=== PATIENT | male | born 1980 | race Asian ===

== ENCOUNTER 2020-05-30 08:30 | Inpatient (IN) | payer OTHER ==
[~2020-05-30] VITALS: Ht 175.3 cm; Wt 61.2 kg
[2020-06-07] MEDS ORDERED: FINASTERIDE1 MG PO (14:02)
[2020-06-08] VITALS (19 sets, daily range): BP systolic 92–164; BP diastolic 52–92
[2020-06-08] MEDS ORDERED: ceFAZolin sod 2 GM in NS 55 ML IVPB ONE (07:00)
--- NOTE | 2020-06-08 07:32 | Pre-Procedure Note/Attestation ---
Pre-Procedure Note/Attestation Complete Prior to Procedure Planned Procedure: bilateral Procedure Narrative: Bilateral hemilaminotomy foraminotomy and right sided microdiscectomy of lumbar 45 and 5-S1 Indications for Procedure Pre-Operative Diagnosis: L45 and L5S1 herniation Attestation I attest that I discussed the nature of the procedure; its benefits; risks and complications; and alternatives (and the risks and benefits of such alternatives ), prior to the procedure, with the patient (or the patient's legal medical collections representative). I attest that, if there was a reasonable possibility of needing a blood transfusion, the patient (or the patient's legal medical collections representative) was given the [place] [employer] [facility] standardized written summary, pursuant to the [place] Blood Safety Act ([place] Health and Safety Code # 1645, as amended). I attest that I re-evaluated the patient just prior to the surgery and that there has been no change in the patient's H&P, except as documented below: Ricci Wen MD Jun 08, 2020 07:32
--- NOTE | 2020-06-08 07:33 | Brief Operative Note ---
Immediate Post Operative Note Operative Note Chief Complaint: back pain and radiculopathy Pre-op Diagnosis: L45 and L5S1 herniation Procedure: Bilateral hemilaminotomy foraminotomy and right sided microdiscectomy of lumbar 45 and 5-S1 Post-op Diagnosis: same as pre-op Findings: consistent w/pre-op dx studies Surgeon: Bettye Garbage Pick Up Worker: Elsie Anesthesiologist: Shimon Anesthesia: general Specimen: none Complications: none Condition: stable Fluids: IVF Estimated Blood Loss: minimal Drains: none Implant(s) used?: No Ricci Wen MD Jun 08, 2020 07:33
[2020-06-08] MEDS ORDERED: HYDROcodone/Acetamin 7.5/325 tab ORAL PRN ×2 (07:45→09:15)
[2020-06-08] MEDS ORDERED: HYDROcodone/Acetamin 5/325 tab ORAL PRN ×2 (07:45→09:15)
[2020-06-08] MEDS ORDERED: Morphine Sulfate 2mg/ml Inj(IV/IM USE ONLY) IV PRN (07:45)
[2020-06-08] MEDS ORDERED: Morphine Sulfate 4mg/ml Inj (IV USE ONLY) IV PRN ×2 (07:45)
[2020-06-08] MEDS ORDERED: Chloraseptic Spray 20mL Bottle ORAL PRN (07:45)
[2020-06-08] MEDS ORDERED: Naloxone 0.4mg/ml Inj IVP PRN (07:45)
[2020-06-08] MEDS ORDERED: Milk of Magnesia 30ml Ud ORAL PRN (07:45)
[2020-06-08] MEDS ORDERED: Neostigmine 1mg/ml 10ml Inj ONE (09:00)
[2020-06-08] MEDS ORDERED: Sterile Water Irrig 1000ml IRRIG ONE (09:00)
[2020-06-08] MEDS ORDERED: LR 1000ml ONE (09:00)
[2020-06-08] MEDS ORDERED: propofoL 1,000mg/100ml IV ONE (09:00)
[2020-06-08] MEDS ORDERED: LR 1000ml 1,000 ML IVLG SCH (09:02)
--- NOTE | 2020-06-08 09:07 | Anethesia Preoperative Eval ---
Anesthesia Pre-op PMH/ROS General Date of Evaluation: Jun 08, 2020 Time of Evaluation: 09:29 Anesthesiologist: Mitch ASA Score: ASA 2 Mallampati Score Class I : Soft palate, uvula, fauces, pillars visible Class II: Soft palate, uvula, fauces visible Class III: Soft palate, base of uvula visible Class IV: Only hard plate visible Mallampati Classification: Class II Surgeon: Bettye Diagnosis: Back Pain Surgical Procedure: B Hemilaminotomy, Foraminotomy, L4-5, L5-S1, R Microdiscectomy L4-5, L5-S1 Anesthesia History: none Family History: no anesthesia problems Allergies: Coded Allergies: No Known Allergies (Unverified , 06/07/20) Medications: see eMAR Patient NPO?: Yes Past Medical History Pulmonary: Reports: asthma Hematology/Immune: Reports: anemia Anesthesia Pre-op Phys. Exam Physician Exam Last Vital Signs Date Time Temp Pulse Resp B/P (MAP) Pulse Ox O2 Delivery O2 Flow Rate FiO2 06/08/20 08:33 Room Air 06/08/20 08:31 97.7 69 18 121/72 (88) 100 Constitutional: NAD Neurologic: CN 2-12 intact Cardiovascular: RRR Respiratory: CTA Gastrointestinal: S/NT/ND Airway Exam Mallampati Score: Class II MO: full ROM: full Teeth: missing, intact Anesthesia Pre-op A/P Risk Assessment & Plan Assessment: ASA 2 Plan: GA, SED, GlideScope Status Change Before Surgery: No Pre-Antibiotics Dru Grams Ancef IV Given Within 1 Hr of Incision: Yes Time Given: 09:51 Carlo Meyer MD Jun 08, 2020 09:07
[2020-06-08] MEDS ORDERED: Meperidine 25mg/0.5ml Inj (FOR RIGORS ONLY) IV PRN (09:15)
[2020-06-08] MEDS ORDERED: Atropine Sulfate 0.4mg/ml inj IVP PRN (09:15)
[2020-06-08] MEDS ORDERED: LORazepam Inj 2mg/ml 1ml IV PRN (09:15)
[2020-06-08] MEDS ORDERED: Hydromorphone 0.5mg/0.5ml inj IVP PRN (09:15)
[2020-06-08] MEDS ORDERED: Acetaminophen (Non formulary) 100 ML IV ONE (09:15)
[2020-06-08] MEDS ORDERED: Labetalol 5mg/ml 20ml vial IV PRN (09:15)
[2020-06-08] MEDS ORDERED: Ketorolac 30mg Inj IV PRN ×2 (09:15)
[2020-06-08] MEDS ORDERED: DiphenhydrAMINE 50mg/ml Inj IVP PRN (09:15)
[2020-06-08] MEDS ORDERED: oxyCODONE HCL/Acetaminophen 5/325mg ORAL PRN (09:15)
[2020-06-08] MEDS ORDERED: fentaNYL 100 mcg/2 mL IV PRN (09:15)
[2020-06-08] MEDS ORDERED: Midazolam 2mg/2ml Inj IVP PRN (09:15)
[2020-06-08] MEDS ORDERED: Metoclopramide 10mg/2ml Inj IVP PRN (09:15)
[2020-06-08] MEDS ORDERED: Gelfoam Size TOPIC ONE (09:17)
[2020-06-08] MEDS ORDERED: Thrombin 5000 units TOPIC ONE ×4 (09:17→11:42)
[2020-06-08] MEDS ORDERED: Bacitracin 50000 Units Vial ONE (09:18)
[2020-06-08] MEDS ORDERED: Ropivacaine 5mg/ml Vial 20ml INJ ONE ×3 (09:18→14:30)
--- NOTE | 2020-06-08 09:33 | Immediate Post-Op Evaluation ---
Immediate Post-Op Evalulation Immediate Post-Op Evalulation Procedure: B Hemilaminotomy, Foraminotomy, L4-5, L5-S1, R Microdiscectomy L4-5 , L5-S1 Date of Evaluation: Jun 08, 2020 Time of Evaluation: 15:05 IV Fluids: 1700 LR Blood Products: 0 Estimated Blood Loss: 100 Urinary Output: 1100 Blood Pressure Systolic: 144 Blood Pressure Diastolic: 88 Pulse Rate: 134 Respiratory Rate: 16 O2 Sat by Pulse Oximetry: 100 Temperature (Fahrenheit): 99.3 Pain Score (1-10): 2 Nausea: No Vomiting: No Complications 0 Patient Status: awake, reacts, patent, extubated, none Hydration Status: adequate Dru Grams Ancef IV Given Within 1 Hr of Incision: Yes Time Given: 09:51 Carlo Meyer MD Jun 08, 2020 09:33
--- NOTE | 2020-06-08 09:34 | 48 Hour Post Anesthesia Eval ---
Post Anesthesia Evaluation Procedure: B Hemilaminotomy, Foraminotomy, L4-5, L5-S1, R Microdiscectomy L4-5 , L5-S1 Date of Evaluation: Jun 08, 2020 Time of Evaluation: 17:23 Blood Pressure Systolic: 132 0: 74 Pulse Rate: 71 Respiratory Rate: 18 Temperature (Fahrenheit): 98.6 O2 Sat by Pulse Oximetry: 100 Airway: patent Nausea: No Vomiting: No Pain Intensity: 2 Hydration Status: adequate Cardiopulmonary Status: Stable Mental Status/LOC: patient returned to baseline Follow-up Care/Observations: 0 Post-Anesthesia Complications: 0 Carlo Meyer MD Jun 08, 2020 09:34
[2020-06-08] MEDS ORDERED: Vancomycin 1gm vial IVPB ONE (09:37)
[2020-06-08] MEDS ORDERED: Lidocaine 1% MPF 10mg/ml 5ml ONE ×2 (09:42→11:59)
[2020-06-08] MEDS ORDERED: Sodium Chloride 10ml vial INJ ONE (09:42)
[2020-06-08] MEDS ORDERED: Lidocaine 1% Plain 30 ml INJ ONE (09:44)
[2020-06-08] MEDS ORDERED: fentaNYL 100 mcg/2 mL IV ONE (09:49)
[2020-06-08] MEDS ORDERED: NS Irrig 1000ml IRRIG ONE ×2 (10:20→10:40)
[2020-06-08] MEDS ORDERED: Glycopyrrolate 0.2mg/ml 1ml Vial ONE (11:29)
--- NOTE | 2020-06-08 12:07 | Diagnostic Imaging Report ---
INDICATION: Pain, intraoperative TECHNIQUE: Intraoperative imaging Fluoroscopy time: 2.9 seconds Total dose: 0.80415 mGym2 Total number of images: One COMPARISON: None FINDINGS: Intraoperative images document surgical tools projected posterior to the superior L5 endplate and L5-S1 disc. IMPRESSION: Intraoperative imaging, as described
[2020-06-08] MEDS ORDERED: Isovue-300 100ml vial INJ PRN (16:00)
--- NOTE | 2020-06-08 16:09 | General Surgery Progress Note ---
General Surgery-Progress Note Subjective Day of Surgery: 06/08/2020 Reason for Consult Postoperative State Procedure Performed Bilateral hemilaminotomy foraminotomy and right sided microdiscectomy of lumbar 45 and 5-S1 Chief Complaint: Non responsive to commands. Additional Comments Patient is not responding to all commands as he is awakening from anesthesia, yet moves all extremities Objective Last 24 Hour Vital Signs Date Time Temp Pulse Resp B/P (MAP) Pulse Ox O2 Delivery O2 Flow Rate FiO2 06/08/20 14:55 71 18 100 06/08/20 14:54 134 16 100 06/08/20 14:50 99.3 128 28 164/84 100 Simple Mask 6 06/08/20 08:33 Room Air 06/08/20 08:31 97.7 69 18 121/72 (88) 100 Dressing: dry Wound: dry Drains: none Cardiovascular: RSR Respiratory: clear Abdomen: soft, non-tender Extremities: no edema Laboratory Tests Test 06/08/20 15:50 POC Whole Blood Glucose 183 MG/DL (74-106) H Imaging MRI Brain, Ct Head Assessment Post-op Diagnosis Status post hemilaminotomy microdiscectomy L45 L5S1 Plan Additional Comments Workup in the PACU for his current state I was notified at 3:27PM that Mr Silvestre was having difficulty waking from the surgical anesthesia I was in the hospital and was at his bedside within moments I immediately called for Dr. Meyer and Dr Gill to help evaluate our shared patient I ordered a Ct Head STAT , MRI Brain, Neurology consult with Dr Antony North CBC , Chem12 Transfer to ICU for monitoring in the interim Ricci Wen MD Jun 08, 2020 16:09
[2020-06-08] MEDS ORDERED: Gadavist 7.5mMol/7.5ml vial IV PRN (16:15)
[2020-06-08 16:19] LABS: HEMATOCRIT 30.8 % (42.0-52.0); HEMOGLOBIN 9.4 G/DL (14.2-18.0); MEAN CORPUSCULAR VOLUME 62 FL (80-99); PLATELET COUNT 155 K/UL (150-450); RED BLOOD COUNT 4.94 M/UL (4.70-6.10); RED CELL DISTRIBUTION WIDTH 14.2 % (11.6-14.8); WHITE BLOOD COUNT 11.7 K/UL (4.8-10.8)
[2020-06-08 16:33] LABS: ANION GAP 9 mmol/L (5-15); BLOOD UREA NITROGEN 14 mg/dL (7-18); CALCIUM 8.4 MG/DL (8.5-10.1); CARBON DIOXIDE 25 MMOL/L (21-32); CHLORIDE 107 MMOL/L (98-107); CREATININE 1.3 MG/DL (0.55-1.30); SODIUM 141 MMOL/L (136-145)
--- NOTE | 2020-06-08 16:33 | General Surgery Progress Note ---
General Surgery-Progress Note Subjective Day of Surgery: 06/08/20 Reason for Consult Patient awoke from surgery 430pm , he is responsive to person place and time, able to answer all questions normally Procedure Performed Bilateral hemilaminotomy foraminotomy and right sided microdiscectomy of lumbar 45 and 5-S1 Chief Complaint: Patient was nonresponsive postoperative until he awoke from anesthesia 430- Symptoms: improved Additional Comments I was at the bedside about to place a valle when he awoke from surgery Objective Last 24 Hour Vital Signs Date Time Temp Pulse Resp B/P (MAP) Pulse Ox O2 Delivery O2 Flow Rate FiO2 06/08/20 14:55 71 18 100 06/08/20 14:54 134 16 100 06/08/20 14:50 99.3 128 28 164/84 100 Simple Mask 6 06/08/20 08:33 Room Air 06/08/20 08:31 97.7 69 18 121/72 (88) 100 Dressing: dry Wound: clean, intact Drains: none Cardiovascular: RSR Respiratory: clear Abdomen: soft Extremities: no edema Laboratory Tests Test 06/08/20 15:50 06/08/20 16:05 POC Whole Blood Glucose 183 MG/DL (74-106) H White Blood Count 11.7 K/UL (4.8-10.8) H Red Blood Count 4.94 M/UL (4.70-6.10) Hemoglobin 9.4 G/DL (14.2-18.0) L Hematocrit 30.8 % (42.0-52.0) L Mean Corpuscular Volume 62 FL (80-99) L Mean Corpuscular Hemoglobin 19.1 PG (27.0-31.0) L Mean Corpuscular Hemoglobin Concent 30.6 G/DL (32.0-36.0) L Red Cell Distribution Width 14.2 % (11.6-14.8) Platelet Count 155 K/UL (150-450) Mean Platelet Volume 9.3 FL (6.5-10.1) Neutrophils (%) (Auto) % (45.0-75.0) Lymphocytes (%) (Auto) % (20.0-45.0) Monocytes (%) (Auto) % (1.0-10.0) Eosinophils (%) (Auto) % (0.0-3.0) Basophils (%) (Auto) % (0.0-2.0) Neutrophils % (Manual) Pending Lymphocytes % (Manual) Pending Platelet Estimate Pending Platelet Morphology Pending Sodium Level Pending Potassium Level Pending Chloride Level Pending Carbon Dioxide Level Pending Blood Urea Nitrogen Pending Creatinine Pending Estimat Glomerular Filtration Rate Pending Glucose Level Pending Calcium Level Pending Total Bilirubin Pending Aspartate Amino Transf (AST/SGOT) Pending Alanine Aminotransferase (ALT/SGPT) Pending Alkaline Phosphatase Pending Total Protein Pending Albumin Pending Globulin Pending Assessment Post-op Diagnosis Status post hemilaminotomy microdiscectomy L45 L5S1 Plan Additional Comments Patient awoke and is able to answer all questions to person place and time he was able to answer who the president was, the year , the month the city and his function here He is now completely responsive and as a result we can hold on cT MRI and neurology consultation We will follow him closely Ricci Wen MD Jun 08, 2020 16:33
[2020-06-08 16:43] LABS: ALANINE AMINOTRANSFERASE 17 U/L (12-78); ALBUMIN 3.8 G/DL (3.4-5.0); ALBUMIN/GLOBULIN RATIO 1.6 (1.0-2.7); ALKALINE PHOSPHATASE 46 U/L (46-116); ASPARTATE AMINO TRANSFERASE 13 U/L (15-37); BILIRUBIN,TOTAL 1.1 MG/DL (0.2-1.0)
[2020-06-08 16:45] LABS: BILIRUBIN,DIRECT 0.3 MG/DL (0.0-0.3)
--- NOTE | 2020-06-08 17:10 | NUR ---
NURSE NOTES: Patient arrived on unit via hospital bed. Stable. AOx2. Patient needed to be reminded of where he is and what day it is. Patient denies pain or SOB. Breathing is even and unlabored. VSS. Patient oriented to room, call light, and unit. Patient instructed to use call light for assistance, verbalized understanding. Patient is in bed in locked and lowest position with call light within reach. All safety measures provided. SCD on marshall legs. IV flushed and patent. Surgical dressing c/d/i. Ice pack in place. All needs met at this time. Will continue to monitor.
--- NOTE | 2020-06-08 17:27 | General Progress Note ---
Assessment/Plan Assessment/Plan: L45 and L5S1 herniation Bilateral hemilaminotomy foraminotomy and right sided microdiscectomy of lumbar 45 and 5-S1 paradoxical anesthesia reaction with toxic met encephalopathy, resolved PLAN 1. incentive spirometry 2. SCD 3. PT evaluation and therapy 4. Hydration 5. Pain management 6. Monitor LOC 7. discharge once stable with outpatient follow up d/w Dr. Wen Subjective Allergies: Coded Allergies: No Known Allergies (Unverified , 06/07/20) Subjective asked to see in recovery was altered vitals initially tachy improved when seen poor response to pain on follow up - now back to normal baseline Objective Last 24 Hour Vital Signs Date Time Temp Pulse Resp B/P (MAP) Pulse Ox O2 Delivery O2 Flow Rate FiO2 06/08/20 14:55 71 18 100 06/08/20 14:54 134 16 100 06/08/20 14:50 99.3 128 28 164/84 100 Simple Mask 6 06/08/20 08:33 Room Air 06/08/20 08:31 97.7 69 18 121/72 (88) 100 Laboratory Tests 06/08/20 15:50: POC Whole Blood Glucose 183H 06/08/20 16:05: White Blood Count 11.7H, Red Blood Count 4.94, Hemoglobin 9.4L, Hematocrit 30.8L , Mean Corpuscular Volume 62L, Mean Corpuscular Hemoglobin 19.1L, Mean Corpuscular Hemoglobin Concent 30.6L, Red Cell Distribution Width 14.2, Platelet Count 155, Mean Platelet Volume 9.3, Neutrophils (%) (Auto) , Lymphocytes (%) (Auto) , Monocytes (%) (Auto) , Eosinophils (%) (Auto) , Basophils (%) (Auto) , Differential Total Cells Counted 100, Neutrophils % ( Manual) 88H, Lymphocytes % (Manual) 3L, Monocytes % (Manual) 8, Eosinophils % ( Manual) 1, Basophils % (Manual) 0, Band Neutrophils 0, Platelet Estimate DecreasedL, Platelet Morphology Normal, Polychromasia 1+, Hypochromasia 1+, Anisocytosis 1+, Sodium Level 141, Potassium Level 4.0, Chloride Level 107, Carbon Dioxide Level 25, Anion Gap 9, Blood Urea Nitrogen 14, Creatinine 1.3, Estimat Glomerular Filtration Rate > 60, Glucose Level 182H, Calcium Level 8.4L , Total Bilirubin 1.1H, Direct Bilirubin 0.3, Aspartate Amino Transf (AST/SGOT) 13L, Alanine Aminotransferase (ALT/SGPT) 17, Alkaline Phosphatase 46, Total Protein 6.2L, Albumin 3.8, Globulin 2.4, Albumin/Globulin Ratio 1.6 Height (Feet): 5 Height (Inches): 9.00 Weight (Pounds): 135 Objective WDWN NAD clear breath sounds bilaterally without rhonchi or wheeze [id number] without MRG NABS nontender no HSM no CCE nonfocal Raoul Hall MD Jun 08, 2020 17:27
[2020-06-08] MEDS: Metoclopramide 10mg/2ml Inj IVP PRN (17:39)
--- NOTE | 2020-06-08 18:01 | NUR ---
INSURANCE NO B/AR INDICATION WHERE TO FAX CLINICALS
--- NOTE | 2020-06-08 18:03 | NUR ---
CASE MANAGEMENT: INITIAL REVIEW 39 YO M PRESENTED TO [facility] PMHx; ASTHMA SI;S/P Bilateral hemilaminotomy foraminotomy and right sided microdiscectomy of lumbar 45 and 5-S1 VS: T 97.7 HR 69 RR 18 B/P 121/72 SATS 100% ON RA LABS: WBC 11.7 GLU 182 CA 8.4 TBILI 1.1 AST 13 IS:OR MEDS' PATIENT ADMITTED TO MED/SURG 06/08/2020 @ 0733 DCP: HOME PLAN OF CARE: 1. incentive spirometry 2. SCD 3. PT evaluation and therapy 4. Hydration 5. Pain management 6. Monitor LOC 7. discharge once stable with outpatient follow up Operative Note Chief Complaint: back pain and radiculopathy Pre-op Diagnosis: L45 and L5S1 herniation Procedure: Bilateral hemilaminotomy foraminotomy and right sided microdiscectomy of lumbar 45 and 5-S1 Post-op Diagnosis: same as pre-op
[2020-06-08] MEDS: NS w/KCl 20mEq 1000ml 1,000 ML IV SCH (18:05)
[2020-06-08] MEDS: ceFAZolin sod 1 GM in D5W 55 ML IV SCH (18:05)
[2020-06-08] MEDS: Docusate 100mg cap ORAL SCH (18:05)
--- NOTE | 2020-06-08 19:40 | NUR ---
NURSE NOTES: received pt. from Shruthi DURHAM.
--- NOTE | 2020-06-08 19:45 | NUR ---
NURSE NOTES: Received awake flat in bed, alert and oriented, verbally responsive. No sob noted, breathing even and unlabored, with complaints of pain, 6/10, was just given pain meds. With bed in it's lowest position, alarmed and locked. With post op site dressing dry and intact. Will continue to monitor.
--- NOTE | 2020-06-08 20:01 | NUR ---
NURSE HAND-OFF: Important Events on Shift:[s/p surgery] Patient Status: stable Diet: regular Pending Orders: n/a Pending Results/Labs:n/a Pending MD notification:n/a Latest Vital Signs: Temperature 98.1 , Pulse 89 , B/P 118 /73 , Respiratory Rate 18 , O2 SAT 95 , Room Air, O2 Flow Rate . Vital Sign Comment: n/a Latest Hammond Fall Score: 35 Fall Risk: Medium Risk Safety Measures: Call light Within Reach, Side Rails Side Rails x1, Bed position Low and Locked. Fall Precautions: Patient Fall Education Report given to Al RN.
[2020-06-08] MEDS: HYDROmorphone 1mg/ml Carpuject IVP PRN (22:05)
[2020-06-09] VITALS (7 sets, daily range): BP systolic 96–127; BP diastolic 51–73
[2020-06-09] MEDS: Metoclopramide 10mg/2ml Inj IVP PRN ×2 (00:35→12:12)
[2020-06-09] MEDS: ceFAZolin sod 1 GM in D5W 55 ML IV SCH ×2 (02:26→09:00)
--- NOTE | 2020-06-09 02:44 | Operative Note - Dictated ---
DATE OF OPERATION: 06/08/2020 SURGEON: Ricci Wen MD MONKEY KEEPER: ESPERANZA Petty. ANESTHESIA: General endotracheal anesthesia. PREOPERATIVE DIAGNOSES: 1. Intractable back pain. 2. Intractable leg pain. 3. Worsening radiculopathy. 4. Weakness. 5. Herniated nucleus pulposus, L4-L5, L5-S1 herniation. 6. Neural foraminal stenosis, L4-L5, L5-S1. POSTOPERATIVE DIAGNOSES: 1. Intractable back pain. 2. Intractable leg pain. 3. Worsening radiculopathy. 4. Weakness. 5. Herniated nucleus pulposus, L4-L5, L5-S1 herniation. 6. Neural foraminal stenosis, L4-L5, L5-S1. PROCEDURES PERFORMED: 1. Right-sided L4-L5, L5-S1 microdiscectomy. 2. L4-L5, L5-S1 hemilaminotomy, foraminotomy and medial facetectomy. 3. L4-L5, L5-S1 neural foraminotomy through a transpedicular intraforaminal approach. 4. Use of intraoperative microscope. 5. Supervision and interpretation of intraoperative fluoroscopy. 6. Supervision and interpretation of somatosensory-evoked potential and free running EMG monitoring. 7. Bilateral hemilaminotomy, foraminotomy L5-S1 and L4-L5. 8. Duraplasty L4-L5. EBL: Less than 100 mL. COMPLICATIONS: None. INDICATIONS FOR THE PROCEDURE: The patient presents for intractable back pain and radiculopathy. The patient tried and failed a prolonged course of conservative management, including but not limited to chiropractic therapy, physical therapy, nonsteroidal anti-inflammatory drugs, medication, ice packs as well as epidural injection. Despite these therapies, the patient still developed recalcitrant pain and elected for definitive management in the form of right-sided L4-L5, L5-S1 microdiscectomy, L4-L5, L5-S1 hemilaminotomy, foraminotomy and medial facetectomy, L4-L5, L5-S1 neural foraminotomy through a transpedicular intraforaminal approach CONSENT: We had a long discussion with the patient regarding definitive surgical treatment options. The patient's MRI demonstrated herniated nucleus pulposus, L4-L5, L5-S1 herniation, neural foraminal stenosis, L4-L5, L5-S1 and as a result, I felt the patient would benefit from the discectomy as well as neural foraminotomy at this level. We had a long discussion with the patient regarding the risks, alternatives, and benefits of surgery. Our description of the risks included a discussion in person as well as a signed consent which detailed all pertinent risks and the procedure itself. Briefly, our discussion included but was not limited to infection, bleeding, pseudarthrosis, spinal cord injury, neurovascular injury, dural tear, CSF leak, neuropathy, paralysis, permanent weakness/drop foot, paresthesias blindness, palsy and weakness. The patient understood there may be a need for revision surgery or additional procedures. Approach related complications including dysphonia, dysphagia, blindness, permanent vocal cord and neural injury, hematoma, swallowing and breathing difficulty. Medical complications including liver, kidney, shock, and cardiopulmonary failure. Anesthesia complications including , swelling. Damage to the musculature, larynx (voice injury or loss),esophagus (throat), trachea, blood vessels and muscles (muscular sprain) and lungs (pneumothorax) during this surgical procedure. Injury to deeper structures may be temporary or permanent. The patient understood these and elected to proceed. A written and verbal consent was given. We discussed the pros and cons of all the alternatives. We discussed the uncertainties associated with the decision. Afterwards I assessed the patients understanding and explored their preferences. All questions were answered and no guarantees were given. Medical clearance was obtained prior to surgery INTRAOPERATIVE FINDINGS: L4-L5 level: There was a larger than anticipated disc herniation at L4-L5 on the right side encroaching the right neural foramina. This was larger than anticipated when viewed on the MRI. This disc was encroaching on neural foramina on the right side. A hemilaminotomy was performed and noticed a bulging at the neural element posteriorly. The neural element was carefully mobilized and noticed a protrusion posteriorly. The neural element was due to a lateralized disc herniation of herniated nucleus pulposus tissue. This was probed with a Microsect-1B curette and found to be the source of a tear in annular fibrosis along the right aspect of the TLL. This tear was approximately inline with the annular fiber vertically almost 10 degrees cephalad to caudad. Through this tissue encroaching on the neural foramina as described on the right side. This tissue was carefully dissected with a combination of a Drummond pituitary, arthroscopic pituitaries, and 1.5 and 2 mm narrow pituitaries until a complete microdiskectomy was performed. Afterwards, I noticed there was no longer any protrusion of posterior directed migration of the neural elements at this level. At L4-L5, I noticed a calcification on the posterior margin of the ligamentum flavum onto the dural tissue itself as a part of the microdiskectomy and the decompression, the ligamentum flavum was resected and upon removal of the bony island attached to the dural tissue, the decision was made to carefully peel off the dural tissue and for not leaving it in its place. As a result, this necessitated a duraplasty for a 1 to 2 mm defect. This was performed with a TF-4 Nurolon suture. This allowed for a wider watertight closure, which was afterwards supplemented with DuraGen and Tisseel. L5-S1: At L5-S1 after the bilateral hemilaminotomy and foraminotomies were performed, I noted a slight posterior migration on the neural element. Once these were carefully mobilized using a Beverly 4 and narrow nerve root retractor, I noticed the source to be a posterior disc herniation, which was visualized through a nearly vertical tear in the posterior longitudinal ligament, which was along the right neural foramina approximately one-third laterally. This nuclear tissue was carefully mobilized with a Microsect-1B and was carefully resected with a combination of arthroscopic pituitaries, narrow pituitaries 1.5 and 2 mm, and a Drummond micropituitary. There were no bony elements noted at L5-S1. I should note the disc at both L4-L5 and L5-S1 was soft and appeared to be in acute traumatic disc herniation. There was nothing degenerative noted about the disc. The disc was not crumbled or desiccated or collapse in disc height. DESCRIPTION OF PROCEDURE: Under the benefit of general endotracheal anesthesia and with the assistance of the entire operative team, the patient was moved from the rdarby onto the operative table in the prone position on a Brad frame. The head was secured and positioned appropriately. Bilateral arms were secured with Gel pads and foam and all bony prominences were padded. The bilateral lower extremity SCD and JOAQUIN hose were placed for DVT prophylaxis. A surgical timeout was called which corroborated our planned procedure. Preoperative Antibiotics were administered within 30 minutes of the incision for prophylaxis. Decadron was given for preoperative steroids. Using lateral radiography, the operative levels were delineated. An incision was marked based on our interpretation of lateral radiography and afterwards the body was prepped and draped in the usual sterile manner. The family was notified that we were ready to commence surgery and were called in the waiting room hourly for updates. An incision was based on our lateral fluoroscopic image to center the incision at the L5-S1 interspace. The wound was prepped and draped in the usual sterile fashion. Using a scalpel a midline incision was taken down through the skin and subcutaneous tissues until the overlying hemilamina of L4-L5, L5-S1 were visualized. Next, using meticulous hemostasis, hemilaminotomies were dissected and retractors were placed. Using a [employer] dental, we confirmed placement at the L4-L5, L5-S1 interspace. We next turned our attention to our decompression. A standard hemilaminotomy foraminotomy medial facetectomy was performed at each level in standard fashion using a Midas-Damion type AM8 drill bit, straight and angled curettage, and Kerrison 4 rongeurs until the lateral thecal sac margin and traversing nerve root was visualized. All remainders of the ligamentum flavum and lateral bony margins were resected in total with angled curettage and Kerrison 4 rongeurs until the lateral thecal sac margin and traversing nerve root was visualized and decompressed. We next turned our attention toward our L4-L5, L5-S1 microdiscectomy on the right side. A Beverly 4 was used to gently mobilize the thecal sac medially and this was held retracted with a bayonetted nerve root retractor. It was at this point that we noted a large broad-based disc protrusion with encroachment dorsally on the thecal sac neural foraminal contents. A bayonet and nerve root retractor was then placed carefully to retract the thecal sac and a discectomy was performed using a combination of a long handled 15 blade scalpel, downgoing and straight pituitaries and downgoing curettage. Afterward the disc space was irrigated twice with 20 mL of antibiotic-impregnated saline. All loose and free-floating disc fragments were carefully resected with a narrow pituitary. Having been satisfied with our decompression after our discectomy of all neural elements, we next turned our attention to our neural foraminoplasty/foraminotomy. This was performed through a transpedicular intraforaminal approach using an access probe followed by a neuro check device, which confirmed ventral placement of our nerve root. Once we confirmed we were safe, we next turned our attention towards placement of our size 10 file under direct microscopic visualization and under lateral fluoroscopy. Using pre and post reciprocation imaging, we were able to visualize our direct decompression given the reciprocation allowed for re-creation of the neural foraminal arch at L4-L5, L5-S1. Afterwards, hemostasis was obtained with 60 mL of antibiotic-impregnated saline followed by FloSeal and Gelfoam. After sponge and needle count were found to be correct, we next turned our attention to closure. Closure consisted of 1-0 Vicryl in standard interrupted fashion. Zosyn was placed deep to the fascia and superficial to the fascia for antibiotic prophylaxis. Skin closure was performed with 2-0 Vicryl in interrupted fashion followed by a running Monocryl for the skin. Final dressings consisted of Dermabond for the superficial skin, Telfa and Tegaderm. The patient tolerated the procedure well. The patient was extubated after the conclusion of surgery without incident. We discussed the findings of the surgery with the family upon completion of the case. At this point the patient will be transferred to the spine floor for further observation. Ricci Wen M.D. DR: YOAN JOB#: [id number] CC:
--- NOTE | 2020-06-09 03:10 | NUR ---
Pt. was continuously monitored. With episodes of nausea 2x, prn meds given and noted effective. Had urinated 3x to a yellowish colored urine, free of sediments with a total of 1300 cc. Complained of post op site pain, non radiating to any part of his body, prn meds given and noted with relief as per verbalized by patient. Slept @ short intervals. Log rolling done at all times. On continued ivatb therapy, no a/r noted. Pt. had some ice chips and tried to eat but becomes nauseated twice. All calls answered promptly. Remained alert and oriented x4 @ all times. No episodes of confusion or disorientation noted. Able to do his Incentive Spirometry when awake as witnessed. On continued scd therapy at all times. Will continue to monitor.
[2020-06-09] MEDS: NS w/KCl 20mEq 1000ml 1,000 ML IV SCH ×3 (04:00→23:08)
[2020-06-09] MEDS: HYDROcodone/Acetamin 7.5/325 tab ORAL PRN ×3 (04:04→23:08)
--- NOTE | 2020-06-09 07:15 | NUR ---
NURSE NOTES: Received report from Al RN, rounds made , pt awake A/Ox4, breaths regular unlabored on RA,no s/s of distress , pt remains stable s/p surgery , denies any pain at this time , pt able to wiggle toes, with strong bilateral pedal pulses , pt has bilateral SCD on , IVF on the R hand 22 G, patent asymptomatic , bed in low locked position, side rails Up X2, belongings and call light within reach, will continue to monitor
--- NOTE | 2020-06-09 07:44 | NUR ---
NURSE NOTES: Report given to Juan DURHAM.
[2020-06-09] MEDS: Docusate 100mg cap ORAL SCH ×2 (08:48→17:17)
--- NOTE | 2020-06-09 08:54 | General Progress Note ---
Assessment/Plan Assessment/Plan: L45 and L5S1 herniation Bilateral hemilaminotomy foraminotomy and right sided microdiscectomy of lumbar 45 and 5-S1 paradoxical anesthesia reaction with toxic met encephalopathy, resolved PLAN 1. incentive spirometry 2. SCD 3. PT evaluation and therapy 4. Hydration 5. Pain management 6. Monitor LOC 7. discharge pending surgical and PT clearance Subjective Allergies: Coded Allergies: No Known Allergies (Unverified , 06/07/20) Subjective doing well at baseline no focal findings Objective Last 24 Hour Vital Signs Date Time Temp Pulse Resp B/P (MAP) Pulse Ox O2 Delivery O2 Flow Rate FiO2 06/09/20 04:34 97.8 06/09/20 04:00 98.0 75 19 123/65 (84) 97 06/09/20 02:00 97.1 78 19 119/70 (86) 99 06/09/20 00:00 97.0 75 18 127/73 (91) 96 06/08/20 22:40 97.5 81 19 112/73 (86) 100 06/08/20 22:35 97.5 06/08/20 21:40 97.6 83 19 110/71 (84) 99 06/08/20 20:40 97.9 80 18 116/69 (85) 100 06/08/20 20:11 98.1 06/08/20 20:00 Room Air 06/08/20 19:44 89 118/73 (88) 06/08/20 18:10 98.1 93 18 92/56 (68) 95 06/08/20 17:40 98.1 95 18 110/67 (81) 95 06/08/20 17:10 98.1 97 20 125/77 (93) 96 06/08/20 16:50 98.0 92 22 120/74 98 Room Air 06/08/20 16:35 95 17 121/73 97 Room Air 06/08/20 16:20 101 38 126/78 98 Room Air 06/08/20 16:10 102 28 122/82 100 Room Air 06/08/20 15:50 97 22 130/88 100 Simple Mask 6 06/08/20 15:35 98 22 148/52 99 Simple Mask 6 06/08/20 15:20 100 22 139/78 100 Simple Mask 6 06/08/20 15:10 100 22 130/81 100 Simple Mask 6 06/08/20 15:00 120 25 143/92 100 Simple Mask 6 06/08/20 14:55 121 29 132/85 100 Simple Mask 6 06/08/20 14:55 71 18 100 06/08/20 14:54 134 16 100 06/08/20 14:50 99.3 128 28 164/84 100 Simple Mask 6 06/08/20 14:50 126 18 157/86 100 Simple Mask 6 Intake and Output 06/08/20 06/09/20 19:00 07:00 Intake Total 2300 ml 955 ml Output Total 1200 ml Balance 1100 ml 955 ml Intake Oral 0 ml IV Total 2300 ml 955 ml Output Urine Total 1100 ml Estimated Blood Loss 100 ml # Voids 1 Laboratory Tests 06/08/20 15:50: POC Whole Blood Glucose 183H 06/08/20 16:05: White Blood Count 11.7H, Red Blood Count 4.94, Hemoglobin 9.4L, Hematocrit 30.8L , Mean Corpuscular Volume 62L, Mean Corpuscular Hemoglobin 19.1L, Mean Corpuscular Hemoglobin Concent 30.6L, Red Cell Distribution Width 14.2, Platelet Count 155, Mean Platelet Volume 9.3, Neutrophils (%) (Auto) , Lymphocytes (%) (Auto) , Monocytes (%) (Auto) , Eosinophils (%) (Auto) , Basophils (%) (Auto) , Differential Total Cells Counted 100, Neutrophils % ( Manual) 88H, Lymphocytes % (Manual) 3L, Monocytes % (Manual) 8, Eosinophils % ( Manual) 1, Basophils % (Manual) 0, Band Neutrophils 0, Platelet Estimate DecreasedL, Platelet Morphology Normal, Polychromasia 1+, Hypochromasia 1+, Anisocytosis 1+, Sodium Level 141, Potassium Level 4.0, Chloride Level 107, Carbon Dioxide Level 25, Anion Gap 9, Blood Urea Nitrogen 14, Creatinine 1.3, Estimat Glomerular Filtration Rate > 60, Glucose Level 182H, Calcium Level 8.4L , Total Bilirubin 1.1H, Direct Bilirubin 0.3, Aspartate Amino Transf (AST/SGOT) 13L, Alanine Aminotransferase (ALT/SGPT) 17, Alkaline Phosphatase 46, Total Protein 6.2L, Albumin 3.8, Globulin 2.4, Albumin/Globulin Ratio 1.6 Height (Feet): 5 Height (Inches): 9.00 Weight (Pounds): 135 Objective WDWN NAD clear breath sounds bilaterally without rhonchi or wheeze [id number] without MRG NABS nontender no HSM no CCE nonfocal fully alert and oriented Raoul Hall MD Jun 09, 2020 08:54
[2020-06-09] MEDS: HYDROmorphone 1mg/ml Carpuject IVP PRN (10:04)
--- NOTE | 2020-06-09 12:37 | NUR ---
CASE MANAGEMENT:REVIEW 06/09/20 SI: POD #1 97.5 74 18 99/51 97% ON RA IS: IVF+KCL@100/HR IV ANCEF Q8HRS COLACE PO BID IV REGLAN Q6HRS PRN IV DILAUDID Q2HRS PRN NORCO PO Q3HRS PRN : MED/SURG STATUS 3 EAST DCP; FROM HOME
--- NOTE | 2020-06-09 14:15 | NUR ---
PT Note PT myra completed, treatment initiated. Patient c/o 12/26 pain on his lumbar surgical incisions. Patient needs physical therapy to instruct/train on proper body mechanics/log rolling techniques and safety precautions for safe and independent functional mobility and gait to enable him to return to [facility]. Addendum: 06/09/20 at 1416 by ORQUIDEA GREEN PT Amended: Links added.
--- NOTE | 2020-06-09 19:40 | NUR ---
NURSE HAND-OFF: Important Events on Shift: Patient Status: stable Diet: Regular Pending Orders: Pending Results/Labs: Pending MD notification: Latest Vital Signs: Temperature 98.0 , Pulse 66 , B/P 100 /66 , Respiratory Rate 18 , O2 SAT 98 , Room Air, O2 Flow Rate . Vital Sign Comment: Latest Hammond Fall Score: 35 Fall Risk: Medium Risk Safety Measures: Call light Within Reach, Bed Alarm Zone 1, Side Rails Side Rails x2, Bed position Low and Locked. Fall Precautions: Yellow Socks Yellow Gown Door Sign Patient Fall Education Report given to .
--- NOTE | 2020-06-09 19:44 | NUR ---
NURSE NOTES: Received report from Bahman DURHAM.pt awake A/Ox4, breaths regular and unlabored on RA,no s/s of distress , reports 5/10 pain but does not want pain medication at this time. IVF running as ordered on the R hand 22 G, patent asymptomatic , bed in low locked position, side rails Up X2, Call light within reach, will continue to monitor
[2020-06-10] VITALS: BP 103/61
[2020-06-10 04:00] VITALS: BP 100/58
--- NOTE | 2020-06-10 07:02 | NUR ---
NURSE HAND-OFF: Important Events on Shift: Patient Status: Stable Diet: Regular diet Pending Orders: Pending Results/Labs: Pending MD notification: Latest Vital Signs: Temperature 97.5 , Pulse 82 , B/P 100 /58 , Respiratory Rate 18 , O2 SAT 98 , Room Air, O2 Flow Rate . Vital Sign Comment: Latest Hammond Fall Score: 35 Fall Risk: Medium Risk Safety Measures: Call light Within Reach, Bed Alarm Zone 1, Side Rails Side Rails x2, Bed position Low and Locked. Fall Precautions: Yellow Socks Yellow Gown Door Sign Patient Fall Education Report given to HERMINIO Cherry.
--- NOTE | 2020-06-10 07:30 | NUR ---
NURSE NOTES: Patient lying in bed awake. Complain of pain 7/10 on surgical site and will administer pain medication as ordered. IV dressing intact and dry. Surgical dressing intact and dry. Bed lowest position. Call light within reach. Will continue to monitor.
[2020-06-10] MEDS: HYDROcodone/Acetamin 7.5/325 tab ORAL PRN ×2 (07:47→13:32)
[2020-06-10 08:00] VITALS: BP 117/67
[2020-06-10] MEDS: NS w/KCl 20mEq 1000ml 1,000 ML IV SCH (09:42)
[2020-06-10] MEDS: Docusate 100mg cap ORAL SCH (09:42)
[2020-06-10 12:00] VITALS: BP 111/62
--- NOTE | 2020-06-10 12:23 | NUR ---
NURSE NOTES: Spoke to regarding discharge and cleared to discharge surgical standpoint. Order noted and carried out.
--- NOTE | 2020-06-10 13:13 | NUR ---
NURSE NOTES: Spoke to regarding discharge and ok to discharge. Order noted and carried out.
[2020-06-10] MEDS ORDERED: NORCO 10-325 T1 EACH ORAL (13:19)
--- NOTE | 2020-06-10 14:12 | NUR ---
NURSE NOTES: Patient discharged with family member in stable condition. Discharge instruction given to patient and verbalized understanding. Discharge prescription and belonging given to patient. IV an ID removed. Instructed to follow up with MD and verbalized understanding. Brought down to private car by wheelchair.
--- NOTE | 2020-06-11 08:52 | Discharge Summary ---
Discharge Summary Hospital Course Date of Admission Jun 08, 2020 at 07:01 Date of Discharge Jun 10, 2020 at 14:06 Admitting Diagnosis Intractable back and leg pain, Herniated nucleus pulposus L4-5, L5-S1, radiculopathy. Reason for Hospitalization: Elective surgery HPI Parminder Silvestre is a 39 year old male who was admitted on Jun 08, 2020 at 07:01 for Herniated Nucleus Pulposus, Pain, Radiculopathy. The patient tried and failed a prolonged course of conservative management, including but not limited to chiropractic therapy, physical therapy, nonsteroidal anti-inflammatory drugs, medication, ice packs as well as epidural injection. Despite these therapies, the patient still developed recalcitrant pain and elected for definitive management in the form of right-sided L4-L5, L5-L2fozurncxilxtnpj, L4-L5, L5-S1 hemilaminotomy, foraminotomy and medial facetectomy, L4-L5, L5-S1 neural foraminotomy through a transpedicular intraforaminal approach. Patient consented for surgery . Procedures s/p 06/08/[address] Wen 1. Right-sided L4-L5, L5-S1 microdiscectomy. 2. L4-L5, L5-S1 hemilaminotomy, foraminotomy and medial facetectomy. 3. L4-L5, L5-S1 neural foraminotomy through a transpedicular intraforaminal approach. 4. Use of intraoperative microscope. 5. Supervision and interpretation of intraoperative fluoroscopy. 6. Supervision and interpretation of somatosensory-evoked potential and free running EMG monitoring. 7. Bilateral hemilaminotomy, foraminotomy L5-S1 and L4-L5. 8. Duraplasty L4-L5. Hospital Course status post surgery initially IV fluids s/p perioperative antibiotics neurovascular status closely monitored, remained stable incision clean ,dry and intact pain management was addressed and controlled remained hemodynamically stable ambulated with PT fall precautions maintained; safe for ambulation DVT prophylaxis provided use of incentive spirometry was encouraged while in the bed tolerated diet , IV fluids discontinued GI prophylaxis provided antiemetics were on board as needed voided freely bowel regimen instituted patient was stable for discharge discharge instructions provided follow up with surgeon in the office as advised FINAL DIAGNOSES 1. Intractable back pain. 2. Intractable leg pain. 3. Worsening radiculopathy. 4. Weakness. 5. Herniated nucleus pulposus, L4-L5, L5-S1 herniation. 6. Neural foraminal stenosis, L4-L5, L5-S1. 7. s/p Bilateral hemilaminotomy foraminotomy and right sided microdiscectomy of lumbar 45 and 5-S1 Discharge Medications Continued Medications: Hydrocodone Bit/Acetaminophen 10-325* ([place] 10-325*) 1 Each Tablet 1 TAB ORAL Q8HR PRN for For Pain, #90 TAB 0 Refills (This prescription has been renewed) PRN PAIN Discharge Condition Upon Discharge: stable Discharge Vital Signs Last Vital Signs Date Time Temp Pulse Resp B/P (MAP) Pulse Ox O2 Delivery O2 Flow Rate FiO2 06/10/20 12:00 98.0 86 16 111/62 (78) 100 06/10/20 09:00 Room Air 06/08/20 15:50 6 Discharge Disposition Patient was discharged to Home (01) Discharge Instructions Discharge Instructions Special Instructions I have been assigned to complete a D/C Summary on this account. I was not involved in the patient management Shraddha Sapp NP Jun 11, 2020 08:52
== END 2020-06-10 14:06 | disposition home or self-care (01) | DRG 520 ==
LOC: SDSOVERFLO 06-08 07:01 → 3E 06-08 17:19
DX: M51.16 Intervertebral disc disorders with radiculopathy, lumbar region (principal); M48.061 Spinal stenosis, lumbar region without neurogenic claudication; M51.17 Intervertebral disc disorders with radiculopathy, lumbosacral region; M48.07 Spinal stenosis, lumbosacral region; D64.9 Anemia, unspecified
CPT/HCPCS: 36415; 72020; 76000; 80053; 82248; 82962; 85007; 85025; 86850; 86900; 86901; 87081; 94003; 94150; J2405; J2710; J2765; J2795; U0002